=== PATIENT | male | born 1945 | race Caucasian/White ===

== ENCOUNTER 2016-07-14 20:04 | Emergency (ER) | payer MEDICARE ==
--- NOTE | 2016-07-14 20:57 | EDM.PDOC ---
ED HPI GENERAL MEDICAL PROBLEM - General Chief Complaint: General Stated Complaint: discussed medications Time Seen by Provider: 07/14/16 20:16 Source of Information: Reports: Patient, RN, RN Notes Reviewed History Limitations: Reports: No Limitations - History of Present Illness INITIAL COMMENTS - FREE TEXT/NARRATIVE: Patient presents to the ED at [facility] to discuss his current medications. The patient states he was seen by his primary on July 04, 2016 and had some medications changes. His Lopressor was decreased to 25mg daily, stopped Lisinopril, and added Norvasc. Patient is concerned if these medications are ok.Patient denies any side effects. He is taking them as directed. - Related Data Allergies Allergy/AdvReac Type Severity Reaction Status Date / Time No Known Allergies Allergy Verified 05/16/14 09:00 Home Meds: Home Meds Allopurinol [Allopurinol] 1 tab PO DAILY 05/11/14 [History] Aspirin [Halfprin] 81 mg PO DAILY 05/11/14 [History] Lisinopril [Lisinopril] 1 tab PO DAILY 05/11/14 [History] Meclizine [Antivert] 25 mg PO TID PRN 05/11/14 [History] Metoprolol Tartrate [Lopressor] 25 mg PO Q12HR 05/11/14 [History] Clinton-3 Fatty Acids [Clinton-3] 1,000 mg PO DAILY 05/11/14 [History] atorvaSTATin Calcium [Atorvastatin Calcium] 40 mg PO DAILY 05/11/14 [History] glipiZIDE [Glipizide Xl] 1 tab PO BID 05/11/14 [History] metFORMIN HCl [Metformin HCl] 500 mg PO DAILY 05/11/14 [History] Social & Family History - Tobacco Use Smoking Status *Q: Never Smoker - Alcohol Use Days Per Week of Alcohol Use: 0 - Recreational Drug Use Recreational Drug Use: No ED ROS GENERAL - Review of Systems Review Of Systems: See Below Constitutional: Denies: Fever, Chills, Weakness Respiratory: Reports: No Symptoms Cardiovascular: Reports: No Symptoms Musculoskeletal: Reports: No Symptoms Skin: Reports: No Symptoms Neurological: Reports: No Symptoms ED EXAM, GENERAL - Physical Exam Exam: See Below Exam Limited By: No Limitations General Appearance: Alert, No Apparent Distress Respiratory/Chest: No Respiratory Distress, Lungs Clear, Normal Breath Sounds Cardiovascular: Normal Peripheral Pulses, Regular Rate, Rhythm, No Edema GI/Abdominal: Normal Bowel Sounds, Soft, Non-Tender Extremities: Normal Inspection Neurological: Alert, Oriented, Normal Cognition Skin Exam: Warm, Dry, Intact, Normal Color, No Rash Departure - Departure Time of Disposition: 20:55 Disposition: Home, Self-Care 01 Condition: good Clinical Impression: Medication management Hypertension Qualifiers: Hypertension type: essential hypertension Qualified Code(s): I10 - Essential ( primary) hypertension - Discharge Information Instructions: Hypertension Referrals: Trinity Geller [facility] [employer] [employer] [employer] [Primary Care Provider] - Forms: ED Department Discharge Additional Instructions: 1. Stay well hydrated and rest 2. Take medications as prescribed 3. See your Primary first week a August for a recheck - Problem List Review Problem List Initiated/Reviewed/Updated: Yes
[2016-07-15 05:02] VITALS: BP 150/66
== END 2016-07-14 21:00 | disposition home or self-care (01) ==
LOC: VM.ED 20:04
DX: I10 Essential (primary) hypertension (principal); Z79.82 Long term (current) use of aspirin; Z79.84 Long term (current) use of oral hypoglycemic drugs; Z79.899 Other long term (current) drug therapy
CPT/HCPCS: 99281-GF; 99283

== ENCOUNTER 2024-06-09 17:12 | Observation (INO) | payer MEDICARE ==
[2024-06-09] MEDS ORDERED: Polyethylene Glycol 3350 Powder 17 GM Packet PO PRN (17:53)
[2024-06-09] MEDS ORDERED: Albuterol/Ipratropium 3.0-0.5 MG/3 ML Neb Soln NEB PRN (17:53)
[2024-06-09] MEDS ORDERED: Melatonin 3 MG Tab PO PRN (17:53)
[2024-06-09] MEDS ORDERED: Ondansetron 4 MG Tab.DIS PO PRN (17:53)
[2024-06-09] MEDS ORDERED: Glucagon,Human Recombinant 1 MG Vial IM PRN (18:19)
[2024-06-09] MEDS ORDERED: 50% Dextrose in Water 50 ML Syringe IVPUSH PRN (18:19)
[2024-06-09] MEDS: Furosemide 40 MG/4 ML VIAL IVPUSH SCH ×2 (18:30→18:58)
[2024-06-09] MEDS: Heparin Sodium 5,000 Units/ML Vial SUBCUT SCH (19:01)
[2024-06-10 06:53] LABS: BASOPHILS ABSOLUTE AUTO 0.1 x10^3/uL (0.0-0.2); EOSINOPHILS ABSOLUTE AUTO 0.5 x10^3/uL (0.0-0.5); EOSINOPHILS PERCENT AUTO 6.5 % (0.0-4.0); HEMOGLOBIN 10.7 g/dL (14.0-18.0); IMMATURE GRAN ABSOLUTE AUTO 0.02 x10^3/uL (0.00-0.07); LYMPHOCYTES ABSOLUTE AUTO 1.1 x10^3/uL (1.0-4.8); LYMPHOCYTES PERCENT AUTO 15.5 % (25.0-50.0); MEAN CORPUSCULAR HEMOGLOBIN 31.4 pg (26.0-32.0); MEAN CORPUSCULAR HGB CONC 33.4 g/dL (32.0-36.0); MEAN CORPUSCULAR VOLUME 93.8 fL (78.0-93.0); MONOCYTES ABSOLUTE AUTO 0.5 x10^3/uL (0.0-0.8); MONOCYTES PERCENT AUTO 6.5 % (2.0-11.0); NEUTROPHILS ABSOLUTE AUTO 4.8 x10^3/uL (1.8-7.7); NEUTROPHILS PERCENT AUTO 70.2 % (50.0-80.0); PLATELET COUNT,PLT 235 x10^3/uL (130-400); RED BLOOD CELL COUNT 3.41 x10^6/uL (4.5-6.0); WHITE BLOOD CELL COUNT,WBC 6.9 x10^3/uL (4.0-10.0)
[2024-06-10 07:09] LABS: A/G RATIO 0.83; ALBUMIN 2.9 g/dL (3.4-5.0); ANION GAP 15.5 mmol/L (5-15); BILIRUBIN TOTAL 0.4 mg/dL (0.2-1.0); CALCIUM 8.6 mg/dL (8.5-10.1); EST CRCL DRUG DOSING (CG) 17.34 mL/min; POTASSIUM,K 4.5 mmol/L (3.5-5.1); PROTEIN TOTAL,TP 6.4 g/dL (6.4-8.2)
[2024-06-10 07:11] LABS: CREATININE 3.8 mg/dL (0.70-1.30)
[2024-06-10] MEDS: amLODIPine 5 MG Tab PO SCH (08:21)
[2024-06-10] MEDS: Insulin Lispro 100 Units/ML 3 ML Vial SUBCUT SCH (08:21)
[2024-06-10] MEDS: Furosemide 100 MG/10 ML SDV IVPUSH SCH (12:21)
[2024-06-10] MEDS: amLODIPine 5 MG Tab PO ONE (17:37)
[2024-06-10] MEDS: Acetaminophen 325 MG Tab PO PRN (18:54)
[2024-06-10] MEDS: glipiZIDE 5 MG Tab PO SCH (21:04)
[2024-06-11 07:02] LABS: BASOPHILS ABSOLUTE AUTO 0.1 x10^3/uL (0.0-0.2); BASOPHILS PERCENT AUTO 1.3 % (0.2-1.2); EOSINOPHILS ABSOLUTE AUTO 0.5 x10^3/uL (0.0-0.5); HEMATOCRIT 34.1 % (40.0-52.0); HEMOGLOBIN 11.4 g/dL (14.0-18.0); IMMATURE GRAN ABSOLUTE AUTO 0.01 x10^3/uL (0.00-0.07); LYMPHOCYTES ABSOLUTE AUTO 1.1 x10^3/uL (1.0-4.8); LYMPHOCYTES PERCENT AUTO 13.7 % (25.0-50.0); MEAN CORPUSCULAR HEMOGLOBIN 31.3 pg (26.0-32.0); MEAN CORPUSCULAR HGB CONC 33.4 g/dL (32.0-36.0); MEAN CORPUSCULAR VOLUME 93.7 fL (78.0-93.0); MONOCYTES ABSOLUTE AUTO 0.5 x10^3/uL (0.0-0.8); MONOCYTES PERCENT AUTO 6.8 % (2.0-11.0); NEUTROPHILS ABSOLUTE AUTO 5.5 x10^3/uL (1.8-7.7); NEUTROPHILS PERCENT AUTO 72.1 % (50.0-80.0); PLATELET COUNT,PLT 255 x10^3/uL (130-400); RED BLOOD CELL COUNT 3.64 x10^6/uL (4.5-6.0); WHITE BLOOD CELL COUNT,WBC 7.7 x10^3/uL (4.0-10.0)
[2024-06-11 07:31] LABS: A/G RATIO 0.81; BILIRUBIN TOTAL 0.5 mg/dL (0.2-1.0); CALCIUM 8.7 mg/dL (8.5-10.1); EST CRCL DRUG DOSING (CG) 17.81 mL/min; POTASSIUM,K 4.2 mmol/L (3.5-5.1); PROTEIN TOTAL,TP 6.7 g/dL (6.4-8.2)
[2024-06-11 07:33] LABS: ANION GAP 15.2 mmol/L (5-15)
[2024-06-11 07:36] LABS: CREATININE 3.7 mg/dL (0.70-1.30)
[2024-06-11] MEDS: amLODIPine 10 MG Tab PO SCH (08:02)
[2024-06-11] MEDS ORDERED: amLODIPine 10 MG Tab PO SCH (09:00)
== END 2024-06-11 14:40 | disposition home or self-care (01) ==
LOC: VM.MS 17:52 → MERGE 17:52 → INTOOBSV 17:52
PROVIDERS: ADMIT Internal Medicine; ATTEND Internal Medicine
DX: N17.9 Acute kidney failure, unspecified (principal); I12.9 Hypertensive chronic kidney disease with stage 1 through stage 4 chronic kidney disease, or unspecified chronic kidney disease; E11.22 Type 2 diabetes mellitus with diabetic chronic kidney disease; N18.32 Chronic kidney disease, stage 3b; R80.9 Proteinuria, unspecified; E78.5 Hyperlipidemia, unspecified; D50.9 Iron deficiency anemia, unspecified; Z79.4 Long term (current) use of insulin; Z79.84 Long term (current) use of oral hypoglycemic drugs; Z79.899 Other long term (current) drug therapy
CPT/HCPCS: 36415; 74150; 80053; 82947; 84484; 85025; 93005; 96372; 96374; 96376; A9270; G0378; J1644; J1940